=== PATIENT | male | born 2000 | race Caucasian/White ===

== ENCOUNTER 2021-09-21 19:26 | Observation (INO) | payer BC, SELFPAY ==
--- NOTE | ~2021-09-21 | CT_ITS ---
EXAMINATION: CT abdomen pelvis w con DATE: 09/21/2021 20:41 INDICATION: Upper abdominal pain constipation and bloating. TECHNIQUE: Computed tomography (CT) of the abdomen and pelvis was performed with 100 mL Omnipaque-350 intravenous contrast. Automated exposure control and iterative reconstruction technique were employe d. The dose-length product was 1069.85 mGy-cm. COMPARISON: 03/28/2012 FINDINGS: Mild dependent atelectasis in the left lower lobe. Heart size is normal. No pericardial or pleural ef fusion. Gallbladder is dilated to 5.5 cm but without evident wall thickening or pericholecystic infla mmatory change to suggest acute cholecystitis. Liver, spleen, pancreas, bilateral adrenal glands and kidneys are normal. Bowels including the appendix are normal. Bladder and prostate are normal. No moises e intraperitoneal gas or fluid. No pathologically enlarged abdominal or pelvic lymphadenopathy. Mild likely physiologic anterior wedging at T11-L1. IMPRESSION: 1. Gallbladder dilation to 5.5 cm but without wall thickening or pericholecystic inflammatory strandi ng to suggest acute cholecystitis and this could be due to fasting state. Correlate for Richter sign a nd if there is clinical concern for acute cholecystitis could consider ultrasound for further evaluat ion. 2. No other acute intra-abdominal/pelvic process. Reviewed, dictated and finalized at location A. [employer] IMPRESSION: 1. Gallbladder dilation to 5.5 cm but without wall thickening or pericholecysti c inflammatory stranding to suggest acute cholecystitis and this could be due t o fasting state. Correlate for Richter sign and if there is clinical concern for acute cholecystitis could consider ultrasound for further evaluation. 2. No other acute intra-abdominal/pelvic process.
--- NOTE | ~2021-09-21 | US_ITS ---
EXAMINATION: US abdomen limited DATE: 09/22/2021 09:56 INDICATION: Abdominal pain. TECHNIQUE: Multiple grayscale and Doppler ultrasound images of the abdomen were obtained. COMPARISON: CT abdomen and pelvis 09/21/2021 FINDINGS: The visualized portions of the abdomen body, and tail of the pancreas are normal. The liver is normal without focal lesion. There is normal flow in main portal vein. The gallbladder is distend ed and demonstrates wall thickening. No visible gallstones. The common duct is normal and measures 6 mm. IMPRESSION: 1. Distended gallbladder with gallbladder wall thickening, but no visible gallstones or sonographic M urphy sign. These findings are indeterminate for acute cholecystitis. Consider hepatobiliary scintigr aphy. Reviewed, dictated and finalized at location A. IMPRESSION: 1. Distended gallbladder with gallbladder wall thickening, but no visible galls tones or sonographic Richter sign. These findings are indeterminate for acute ch olecystitis. Consider hepatobiliary scintigraphy.
--- NOTE | ~2021-09-21 | NM_ITS ---
EXAMINATION: NM hepatobiliary w pharm DATE: 09/23/2021 09:44 INDICATION: Jaundice. COMPARISON: CT abdomen and pelvis 09/21/2021 TECHNIQUE: 5.1 mCi Tc-99m mebrofenin (Choletec) was administered intravenously. Scintigraphic images of the abdomen were obtained for one hour. Then, 2 mg morphine was administered, and imaging was con tinued for 30 minutes. FINDINGS: There is normal clearance of radiotracer from the blood pool. There is homogeneous tracer u ptake by the liver. Activity progresses to the bowel and gallbladder. IMPRESSION: 1. Patent cystic duct and common duct. Reviewed, dictated and finalized at location A.
--- NOTE | ~2021-09-21 | MR_ITS ---
EXAMINATION: MR MRCP wo/w con/w 3D wo ind DATE: 09/23/2021 13:26 INDICATION: Jaundice. Abdominal pain. TECHNIQUE: Magnetic resonance imaging (MRI) of the abdomen was performed without and with 20 mL Multi Chavez intravenous contrast. Sequences included coronal T2-weighted FS FSE, coronal T2-weighted FSE, a xial T1-weighted LAVA, coronal FS FIESTA, axial dual-echo T1-weighted SPGR, coronal lava-FLEX, sagitt al T2-weighted FSE, axial T2-weighted FSE, and axial DWI. Thick-slab T2-weighted FSE images were obta ined for magnetic resonance cholangiopancreatography (MRCP). Maximum intensity projection 3-D reconst ructions of the volumetric data were created by the technologist. Postcontrast sequences included cor onal LAVA-flex and time course of axial T1-weighted LAVA. COMPARISON: CT abdomen and pelvis 09/21/2021, ultrasound 09/22/2021, hepatobiliary scintigraphy 09/24/19 22 FINDINGS: ABDOMEN MRI: The liver and spleen are normal. The gallbladder is distended. The pancreas, adrenal gla nds, and kidneys are normal. There are no dilated loops of bowel. There are no pathologically enlarge d lymph nodes. There is no free intraperitoneal fluid. ABDOMEN MRCP: The common duct is normal and measures 3 mm. IMPRESSION: 1. Normal common bile duct. No choledocholithiasis. 2. Gallbladder distention, which may be secondary to fasting. Reviewed, dictated and finalized at location A.
[2021-09-21 19:29] VITALS: BP 151/86; PULSE 100; RESP 17; TEMP 36.6; O2SAT 100
--- NOTE | 2021-09-21 19:42 | ED.ABDPAIN ---
HPI - Abdominal Pain General Chief Complaint: Abdominal Pain Stated Complaint: pain Time Seen by Provider: 09/21/21 19:33 Source: RN notes reviewed History of Present Illness HPI narrative: Patient presents emergency department from home for abdominal pain. Patient states he had diffuse abdominal pain described as cramping and bloating for the past 3 days states is been associated with a decreased appetite. Per the patient's mother is present she is also concerned as the patient's eye color appears to be slightly more yellow than normal the patient states he was sick approximately 10 days ago with 3 days of fever and been tested for Covid at that time that was negative and that his symptoms all resolved after 3 days and that these of started approximately a week later he denies any current fevers or chills, chest pain shortness of breath, cough, nausea, vomiting, diarrhea or any other symptoms Related Data Home Medications Medication Instructions Recorded Confirmed No Home Medications 09/21/21 09/21/21 Allergies Allergy/AdvReac Type Severity Reaction Status Date / Time No Known Allergies Allergy Verified 09/21/21 19:32 Review of Systems Review of Systems: Gen.: Denies fevers or chills ENT: Denies congestion Respiratory: Denies shortness of breath or cough CV: Denies chest pain or palpitations GI: See HPI denies burning, urgency, frequency or hematuria Musculoskeletal: Denies back pain or muscle pain Neuro: Denies numbness, tingling, weakness or focal weakness Skin: Denies rash Except as documented, all other systems reviewed and negative PMF Past Medical History Medical History (Updated 09/21/21 @ 21:50 by Abhinav Khan DO) Patient denies significant medical history Social History Social History (Updated 09/21/21 @ 19:43 by Abhinav Khan DO) Smoking status: Never smoker Exam Narrative: APPEARANCE: No acute distress, nontoxic, resting in bed EYES: EOMI, scleral icterus HEENT: Normocephalic, atraumatic, OMM RESPIRATORY: No respiratory distress Clear to auscultation bilaterally with no rhonchi wheezing or rales. CARDIOVASCULAR: Regular rate and rhythm without murmurs rubs or gallops. ABDOMINAL: Soft, nondistended and mildly diffusely tender to palpation no rebound or guarding MUSCULOSKELETAl: Moves all extremities. No clubbing, cyanosis or edema. NEURO: Awake and alert. Following commands, speech normal, no focal deficits SKIN:: Warm, dry. No rashes lesions or abrasions PSYCHIATRIC: Normal affect/mood, Course Course Emergency Course: Discussed with Dr. Flores presentation work-up. Suspect a viral hepatitis agrees with consult Discussed with Ryanne for Dr. Graham agrees with admission Discussed with patient and family results of workup and diagnosis. Discussed need for admission. Patient and family understand and agree to current treatment plan Vital Signs Vital signs: Vital Signs Temperature 97.8 F 09/21/21 19:29 Pulse Rate 100 09/21/21 19:29 Respiratory Rate 17 09/21/21 19:29 Blood Pressure 151/86 H 09/21/21 19:29 Pulse Oximetry 100 09/21/21 19:29 Temperature 97.8 F 09/21/21 19:29 Pulse Rate 100 09/21/21 19:29 Respiratory Rate 17 09/21/21 19:29 Blood Pressure 151/86 H 09/21/21 19:29 Pulse Oximetry 100 09/21/21 19:29 MDM - Abdominal Pain Lab Data Result diagrams: 09/21/21 19:51 09/21/21 19:51 Labs: Lab Results 09/21/21 09/21/21 09/21/21 Range/Units 19:51 19:51 19:51 WBC 11.4 H (4.5-10.0) K/mm3 RBC 5.13 (4.6-6.20) M/mm3 Hgb 16.2 (14.0-18.0) g/dL Hct 46.7 (42.0-52.0) % MCV 91.0 (80-100) fl MCH 31.6 (26-34) pg MCHC 34.7 (32-36) g/dl RDW 12.3 (11.5-14.5) % Plt Count 268 (150-375) k/mm3 MPV 8.7 (7.4-10.4) fl Immature Gran % (Auto) 0.8 H (0-0.5) % Neut % (Auto) 73.4 H (45.5-73.1) % Lymph % (Auto) 15.1 L (18.3-44.2) % [place] % (Auto) 6.7 (2
[2021-09-21] MEDS: SODIUM CHLORIDE 0.9% IV 1,000 ML 999 ML IV CONT (19:55)
[2021-09-21 20:12] LABS: INR 1.1; Partial Thromboplastin Time 27.3 SECONDS (22.3-36.8); Prothrombin Time 14.2 Seconds (11.1-14.7)
[2021-09-21 20:13] LABS: Alanine Aminotransferase 587 U/L (4-50); Albumin Level 4.5 g/dL (3.5-5.1); Alkaline Phosphatase 358 U/L (38-126); Anion Gap 11 mmol/L (8-16); Aspartate Amino Transferase 134 U/L (17-59); Bilirubin,Total 4.9 mg/dL (0.2-1.3); Blood Urea Nitrogen 10 mg/dL (9-20); Carbon Dioxide 24 mmol/L (22-30); Chloride 103 mmol/L (98-107); Estimated Glomerular Filt Rate > 60; Glucose 116 mg/dL (65-110); Lipase 452 U/L (23-300); Potassium 3.6 mmol/L (3.4-5.0); Sodium 138 mmol/L (137-145)
[2021-09-21 20:30] LABS: Basophils Absolute Auto 0.1 K/mm3 (0.0-0.1); Basophils Percent Auto 0.5 % (0.2-1.2); Eosinophils Absolute Auto 0.4 K/mm3 (0-0.3); Eosinophils Percent Auto 3.5 % (0-4.4); Hematocrit 46.7 % (42.0-52.0); Hemoglobin 16.2 g/dL (14.0-18.0); Immature Granulocyte Absolute 0.09 K/mm3 (0.00-0.031); Immature Granulocyte Percent A 0.8 % (0-0.5); Lymphocytes Absolute Auto 1.72 K/mm3 (0.9-3.2); Lymphocytes Percent Auto 15.1 % (18.3-44.2); Mean Corpuscular HGB Conc 34.7 g/dl (32-36); Mean Corpuscular Hemoglobin 31.6 pg (26-34); Mean Platelet Volume 8.7 fl (7.4-10.4); Monocytes Absolute Auto 0.8 K/mm3 (0.1-0.6); Monocytes Percent Auto 6.7 % (2.6-8.5); Neutrophils Absolute Auto 8.3 K/mm3 (1.3-6.7); Neutrophils Percent Auto 73.4 % (45.5-73.1); Platelet Count Result 268 k/mm3 (150-375); Red Blood Count 5.13 M/mm3 (4.6-6.20); Red Cell Distribution Width 12.3 % (11.5-14.5); White Blood Count 11.4 K/mm3 (4.5-10.0)
[2021-09-21 21:30] LABS: Add Urine Microscopic? YES; Appearance Urine Clear (Clear); Bilirubin Urine 2+ (Negative); Blood Urine Negative (Negative); Color Urine Amber (Yellow); Glucose Urine UA Negative (Negative); Ketones Urine Negative (Negative); Leukocyte Esterase Ur Negative LEU/UL (Negative); Nitrate Urine Negative (Negative); Protein Urine Negative (Negative); RBC Urine 0-2 /hpf (0-2); Specific Grav Ur 1.018 (1.001-1.035)
[2021-09-21 23:10] VITALS: BP 147/84; PULSE 96; RESP 17; TEMP 37.2; O2SAT 100
[2021-09-21] MEDS: SODIUM CHLORIDE 0.9% IV 1,000 ML 125 ML IV CONT (23:10)
[2021-09-21 23:11] VITALS: BMI 31.5
[2021-09-22] VITALS (7 sets, daily range): BP systolic 99–152; BP diastolic 54–73; PULSE 81–85; RESP 16–17; TEMP 36.1–37.7; O2SAT 97–100
[2021-09-22] MEDS: ZOLPIDEM TARTRATE (*CRX) 5 MG TABLET PO (01:07)
--- NOTE | 2021-09-22 05:06 | PM.IMHP ---
H&P: HPI History of Present Illness Date/Time: 09/22/21 05:06 21-year-old male with no significant past medical history presents to the emergency room with chief complaint of fever approximately 3 days duration note occurred 10 days ago. Patient states he felt fine for 2-3 days and then suddenly developed mid back pain sore in quality lasting for approximately 4 days he took ibuprofen for this without relief over the next few days he developed bloating constipation pain while lying on his sides and a gripping pain that wraps around the upper part of his abdomen from side to side. Pain is reported 3 to 12/20 there is no relationship with food or activity he does also report symptoms of decreased appetite over the last week headache intermittently that improved with ibuprofen. abdominal bloating and constipation last BM was normal color and consistency 3 days ago. His parents noted that he looked yellow yesterday and they brought him to the hospital. CT imaging reveals a dilated gallbladder without wall thickening or pericholecystic inflammatory stranding. Laboratories demonstrate mild leukocytosis, AST 114, ALT 587, alk phos 358, and total bilirubin 4.9, are all elevated. Patient admitted for further workup and surgical consultation. Chief Complaint: abd pain bloating Review of Systems Review of Systems: All systems reviewed & are unremarkable except as noted in HPI and below PMFSH Past Medical History Medical History (Updated 09/22/21 @ 15:03 by Gabby Graham MD) Amputation, finger, traumatic Patient denies significant medical history Upper abdominal pain Surgical History Surgical History (Updated 09/22/21 @ 15:03 by Gabby Graham MD) Hx of tonsillectomy Family History Family History Other Unknown family medical history Social History Social History Smoking status: Never smoker Alcohol intake: current Drinks per week: 10 Substance use: unknown Spiritual care concerns: No Meds Home Medications and Allergies Home Medications Medication Instructions Recorded Confirmed Type No Home Medications 09/21/21 09/21/21 History Allergies Allergy/AdvReac Type Severity Reaction Status Date / Time No Known Allergies Allergy Verified 09/22/21 01:23 Vital Signs Vital Signs - 24 hr 09/21/21 19:29 09/21/21 23:10 09/22/21 03:55 Temperature 97.8 F 98.9 F 98.7 F Pulse Rate 100 96 83 Respiratory Rate 17 17 16 Blood Pressure 151/86 H 147/84 H 122/67 Pulse Oximetry 100 100 100 Exam Const: General: comfortable and no acute distress HENMT: General nose exam: Normal nares present Mouth: Yes moist mucous membranes Eyes: General: appearance normal, both eyes and all related structures Neck: Neck: supple and no JVD Lymphatic: lymphadenopathy not noted Resp: Effort & Inspection: normal respiratory effort Auscultation: clear to auscultation bilaterally, no crackles, no rales, no rhonchi and no wheezes Cardio: Rate: regular rate Rhythm: regular rhythm Heart sounds: no gallops, no murmurs and no rubs GI: Inspection: non-distended GI Palp: Yes Soft to palpation and Yes Tenderness to palpation present (GI) (deep palpation) Percussion: Yes normal to percussion Skin: General skin exam: normal color, no rashes or lesions noted and no erythema Wounds: no wounds Neuro: Cognition (Neuro): normal cognition Speech: normal speech Motor exam (neuro): 5/5 motor strength present throughout, Normal motor muscle tone present throughout, Abnormal motor strength present and Motor abnormalites present Sensory Exam: normal sensation Extrem: General: normal to inspection Psych: Mental Status: mental status grossly normal Affect: normal affect, No Sad affect present, No Anxious affect present and No Hostile affect present Attitude: not belligerent Thought content: No Hallucination(s) present and
[2021-09-22 05:15] LABS: Hepatitis B Surface Antigen Negative (Negative)
[2021-09-22 05:21] LABS: HAV RESULT Negative (Negative); Hepatitis B Core IgM Result Negative (Negative)
[2021-09-22 05:33] LABS: Hepatitis C Virus Antibody Negative (Negative)
[2021-09-22 05:58] LABS: Basophils Absolute Auto 0.1 K/mm3 (0.0-0.1); Basophils Percent Auto 0.8 % (0.2-1.2); Eosinophils Absolute Auto 0.3 K/mm3 (0-0.3); Eosinophils Percent Auto 3.6 % (0-4.4); Hematocrit 43.4 % (42.0-52.0); Hemoglobin 14.8 g/dL (14.0-18.0); Immature Granulocyte Absolute 0.08 K/mm3 (0.00-0.031); Immature Granulocyte Percent A 0.9 % (0-0.5); Lymphocytes Absolute Auto 1.69 K/mm3 (0.9-3.2); Lymphocytes Percent Auto 19.4 % (18.3-44.2); Mean Corpuscular HGB Conc 34.1 g/dl (32-36); Mean Corpuscular Hemoglobin 31.5 pg (26-34); Mean Corpuscular Volume 92.3 fl (80-100); Mean Platelet Volume 8.6 fl (7.4-10.4); Monocytes Absolute Auto 0.6 K/mm3 (0.1-0.6); Monocytes Percent Auto 7.1 % (2.6-8.5); Neutrophils Percent Auto 68.2 % (45.5-73.1); Platelet Count Result 225 k/mm3 (150-375); Red Cell Distribution Width 12.5 % (11.5-14.5); White Blood Count 8.7 K/mm3 (4.5-10.0)
[2021-09-22 06:09] LABS: Alanine Aminotransferase 478 U/L (4-50); Albumin Level 3.9 g/dL (3.5-5.1); Alkaline Phosphatase 322 U/L (38-126); Anion Gap 8 mmol/L (8-16); Aspartate Amino Transferase 114 U/L (17-59); Bilirubin,Total 3.6 mg/dL (0.2-1.3); Blood Urea Nitrogen 8 mg/dL (9-20); Calcium 8.6 mg/dL (8.4-10.2); Carbon Dioxide 25 mmol/L (22-30); Chloride 105 mmol/L (98-107); Estimated CRCL calculation 152 ml/min; Estimated Glomerular Filt Rate > 60; Glucose 94 mg/dL (65-110); Lipase 302 U/L (23-300); Sodium 138 mmol/L (137-145)
[2021-09-22] MEDS: SODIUM CHLORIDE 0.9% IV 1,000 ML 125 ML IV CONT (08:55)
--- NOTE | 2021-09-22 10:41 | WPDGICN ---
Assessment and Plan Assessment and plan (1) Elevated liver enzymes: Code(s): R74.8 - Abnormal levels of other serum enzymes Status: Acute Assessment and Plan: most likely GB/biliary source hepatitis panel negative will get MRCP to assess bile duct and rule out stricture/filling defect, etc surgery will evaluate patient (2) Jaundice, unspecified, not of : Code(s): R17 - Unspecified jaundice Status: Acute Assessment and Plan: continue to monitor denies previous episode (3) Upper abdominal pain: Code(s): R10.10 - Upper abdominal pain, unspecified Status: Acute (4) Cholecystitis: Code(s): K81.9 - Cholecystitis, unspecified Status: Acute Assessment and Plan: most likely diagnosis, had fever few days ago GI Consult Note Consult date/time: 09/22/21 10:41 Reason for consult: jaundice, abdominal pain HPI: Silverio Austin is a 21 year old male with no significant medial history who came here with diffuse upper abdominal pain described as cramping and bloating for the past 3 days, also decrease appetite and also noted dark urine. He says that about 10 days ago had fever that lasted 4 days, max 102 F- COVID test negative, used ibuprofen as needed. Last 3-4 days also yellowish sclerae, he says that never had hepatitis or GB problem. Pain for last 3-4 days unchanged and finally came to ER. No illicit drugs, he drinks alcohol only on weekends 10-15 drinks total. Abdominal ultrasound reviewed, showed distended gallbladder with gallbladder wall thickening- similar findings by CT scan. bili 4.9, transaminases 400-500, lipase 300, hepatitis panel negative. [facility] Past Medical History Medical History (Updated 09/22/21 @ 10:48 by Maximino Garcia MD) Cholecystitis Patient denies significant medical history Upper abdominal pain Family History Family History (Updated 09/21/21 @ 23:05 by Liudmila López RN) Other Unknown family medical history Social History Social History (Updated 09/21/21 @ 19:43 by Abhinav Khan DO) Smoking status: Never smoker Alcohol intake: current Drinks per week: 10 Substance use: unknown Spiritual care concerns: No Meds Home Medications and Allergies Home Medications Medication Instructions Recorded Confirmed Type No Home Medications 09/21/21 09/21/21 History Allergies Allergy/AdvReac Type Severity Reaction Status Date / Time No Known Allergies Allergy Verified 09/22/21 01:23 Vital Signs Vital Signs - 24 hr 09/21/21 19:29 09/21/21 23:10 09/22/21 03:55 Temperature 97.8 F 98.9 F 98.7 F Pulse Rate 100 96 83 Respiratory Rate 17 17 16 Blood Pressure 151/86 H 147/84 H 122/67 Pulse Oximetry 100 100 100 Exam Const: General: comfortable and no acute distress HENMT: General nose exam: Normal nares present Eyes: General: appearance normal, both eyes and all related structures Other: icteric sclerae Neck: Neck: no JVD Resp: Auscultation: clear to auscultation bilaterally Cardio: Rate: regular rate Rhythm: regular rhythm GI: Inspection: non-distended GI Palp: Yes Soft to palpation and Yes Tenderness to palpation present (GI) (mild ttp in epigastric/ruq, no rebound) Auscultation: normal bowel sounds Skin: General skin exam: normal color Neuro: Speech: normal speech Motor exam (neuro): Normal motor muscle tone present throughout Extrem: General: normal to inspection Psych: Mental Status: mental status grossly normal Results Labs CBC & Chem 7: 09/22/21 05:24 09/22/21 05:24 Labs: Short CBC 09/21/21 09/22/21 Range/Units 19:51 05:24 WBC 11.4 H 8.7 (4.5-10.0) K/mm3 Hgb 16.2 14.8 (14.0-18.0) g/dL Hct 46.7 43.4 (42.0-52.0) % Plt Count 268 225 (150-375) k/mm3 [facility] 09/21/21 09/22/21 09/22/21 19:51 05:24 05:24 Sodium 138 138 Cancelled Potassium 3.6 4.0 Cancelled Chloride 103 105 Canc
--- NOTE | 2021-09-22 11:51 | PM.CNGS ---
Assessment and Plan Assessment and plan (1) Upper abdominal pain: Code(s): R10.10 - Upper abdominal pain, unspecified Status: Acute Assessment and Plan: upper abdominal pain is associated with lower thoracic back pain. It is not a severe pain and not associated with eating. There is no associated nausea or vomiting. It is essentially gone in the morning but gets worse through the day. Somewhat unusual presentation but could be associated with cholecystitis. (2) Jaundice, unspecified, not of : Code(s): R17 - Unspecified jaundice Status: Acute Assessment and Plan: Hepatitis panel is negative. No biliary ductal dilatation on imaging to suggest obstructive jaundice. Occasionally can be caused by cholecystitis with intrahepatic cholestasis. (3) Abnormal findings on diagnostic imaging of gallbladder: Code(s): R93.2 - Abnormal findings on diagnostic imaging of liver and biliary tract Status: Acute Assessment and Plan: gallbladder is markedly dilated with thickened wall on imaging. No stones are noted on either CT or ultrasound. He is not tender over the gallbladder nor is it palpable. Could be unusual presentation of acalculous cholecystitis. Discussed with Dr. Roman. Will get a hepatobiliary scan tomorrow morning. Will go ahead and start the patient on a low-fat diet today. Continue IV fluids and p.r.n. analgesics. Will recheck labs again tomorrow as well. If HIDA scan does show cystic duct obstruction, would likely recommend laparoscopic cholecystectomy. I discussed the procedure of laparoscopic cholecystectomy with the patient and his father who was present in the room when I evaluated him. The procedure the risks the benefits were discussed. The usual recovery was discussed. They are comfortable with going ahead tomorrow if testing should indicate. After discussing with the patient and his father, I called the patient's mother and discussed my evaluation findings and recommendations with her as well. All questions were answered. She is also comfortable with the above plan. History of Present Illness Consult details Consult date: 09/22/21 Reason for consult: abdominal pain Requesting physician: Abhinav Khan DO Narrative: Patient is a 21-year-old male who is generally quite healthy. About 10 or 11 days ago, he experienced 3 days of fever and did not feel well. He did get a COVID test which was negative. After 3 days, his fever and feelings of malaise went away. He was fine until 3 or 4 days ago when he started noticing some lower thoracic back pain and upper abdominal pain. This pain was sporadic and not made worse by eating. It was not severe pain. In fact, the patient would awaken and feel fine but then as the day went on he developed more discomfort in his back and upper abdomen. He also noticed that his appetite was poor. He normally eats a lot of food but the day before they came to the emergency room, he had very little appetite. His mother noticed that he appeared jaundice and brought him to the emergency room. In the emergency room, he was afebrile with normal vital signs. His white blood cell count was slightly elevated at 11,400. His bilirubin was elevated at 4.9 and liver function tests were elevated as well. His lipase was elevated at 452. His abdominal exam showed mild diffuse tenderness. CT scan of the abdomen and pelvis showed a very dilated gallbladder but no evidence of stones. There was no sign of pancreatitis. There were no abnormalities of the liver to suggest cirrhosis. I reviewed his CT scan independently and I agree he has a markedly distended gallbladder. Hepatitis profile was obtained and was negative. Ultrasound of the gallbladder was done this morning and shows again a very distended gallbladder with a thickened wall but no gallstones. Common bile duct was not dilated on either the CT scan or the ultrasound. This morning, he is not
[2021-09-22] MEDS: ENOXAPARIN 40 MG/0.4 ML SYRINGE SUB-Q (12:48)
[2021-09-22] MEDS: ACETAMINOPHEN 500 MG TABLET PO (20:00)
[2021-09-22] MEDS: FAMOTIDINE 20 MG/2 ML VIAL IV PUSH (20:01)
[2021-09-22] MEDS: SODIUM CHLORIDE 0.9% IV 1,000 ML 80 ML IV CONT (20:03)
[2021-09-22] MEDS: traZODone HCL 50 MG TABLET PO (21:26)
[2021-09-23 04:11] VITALS: BP 132/65; PULSE 89; RESP 17; TEMP 37.1; O2SAT 98
[2021-09-23 06:05] LABS: Hematocrit 44.6 % (42.0-52.0); Hemoglobin 15.1 g/dL (14.0-18.0); Mean Corpuscular HGB Conc 33.9 g/dl (32-36); Mean Corpuscular Hemoglobin 31.3 pg (26-34); Mean Corpuscular Volume 92.5 fl (80-100); Mean Platelet Volume 8.6 fl (7.4-10.4); Platelet Count Result 222 k/mm3 (150-375); Red Blood Count 4.82 M/mm3 (4.6-6.20); Red Cell Distribution Width 12.6 % (11.5-14.5); White Blood Count 8.2 K/mm3 (4.5-10.0)
[2021-09-23 06:15] LABS: Alanine Aminotransferase 503 U/L (4-50); Albumin Level 4.1 g/dL (3.5-5.1); Alkaline Phosphatase 307 U/L (38-126); Anion Gap 7 mmol/L (8-16); Aspartate Amino Transferase 179 U/L (17-59); Bilirubin,Total 2.2 mg/dL (0.2-1.3); Blood Urea Nitrogen 8 mg/dL (9-20); Calcium 8.8 mg/dL (8.4-10.2); Carbon Dioxide 27 mmol/L (22-30); Chloride 107 mmol/L (98-107); Estimated CRCL calculation 136 ml/min; Estimated Glomerular Filt Rate > 60; Glucose 100 mg/dL (65-110); Lipase 511 U/L (23-300); Potassium 4.1 mmol/L (3.4-5.0); Sodium 141 mmol/L (137-145)
--- NOTE | 2021-09-23 07:47 | PM.IMPN ---
Progress Note: A&P Assessment and Plan (1) Elevated liver enzymes: Code(s): R74.8 - Abnormal levels of other serum enzymes Status: Acute (2) Jaundice, unspecified, not of : Code(s): R17 - Unspecified jaundice Status: Acute (3) Abnormal findings on diagnostic imaging of gallbladder: Code(s): R93.2 - Abnormal findings on diagnostic imaging of liver and biliary tract Status: Acute (4) Upper abdominal pain: Code(s): R10.10 - Upper abdominal pain, unspecified Status: Acute (5) Elevated lipase: Code(s): R74.8 - Abnormal levels of other serum enzymes Status: Acute Additional Plan 09/22/2021 admit to med surg Clinically patient appears to have cholecystitis although imaging is inconclusive at this time HIDA scan in a.m. Surgery following GI consulted for jaundice pain control IVFs on general diet at present NPO if develops nausea or pain VTEP ambulate pt Repeat CBC, CMP in a.m. to trend LFTs and Lipase anticipate LOS > 2 midnights 09/23/2021 HIDA and MRCP reviewed LFTs and Lipase remain elevated but stable pending follow up by Dr Flores diet per Dr Flores after he sees pt CMV and EBV ordered cont supportive care Subjective Date/time seen: 09/23/21 13:47 pt doing ok but does report he had pain last night, lipase slightly higher today. HIDA scan reviewed w GI, EBV and CMV ordered. Exam Const: General: comfortable and no acute distress HENMT: General nose exam: Normal nares present Mouth: Yes moist mucous membranes Eyes: General: appearance normal, both eyes and all related structures Neck: Neck: supple and no JVD Lymphatic: lymphadenopathy not noted Resp: Effort & Inspection: normal respiratory effort Auscultation: clear to auscultation bilaterally, no crackles, no rales, no rhonchi and no wheezes Cardio: Rate: regular rate Rhythm: regular rhythm Heart sounds: no gallops, no murmurs and no rubs GI: Inspection: non-distended Skin: General skin exam: normal color, no rashes or lesions noted and no erythema Wounds: no wounds Neuro: Cognition (Neuro): normal cognition Speech: normal speech Motor exam (neuro): Normal motor muscle tone present throughout Extrem: General: normal to inspection Psych: Mental Status: mental status grossly normal Affect: normal affect, No Sad affect present, No Anxious affect present and No Hostile affect present Attitude: not belligerent Objective Data Vital Signs Vital Signs: Vital Signs - 24 hr 09/22/21 14:00 09/22/21 19:24 09/22/21 20:00 Temperature 97 F L 99.9 F H 99.9 F H Pulse Rate 81 85 Respiratory Rate 16 17 Blood Pressure 152/73 H 99/54 L Pulse Oximetry 100 100 09/22/21 21:00 09/22/21 21:26 09/22/21 23:19 Temperature 98.9 F 98.9 F Pulse Rate Respiratory Rate Blood Pressure Pulse Oximetry 97 09/23/21 04:11 Temperature 98.7 F Pulse Rate 89 Respiratory Rate 17 Blood Pressure 132/65 Pulse Oximetry 98 Intake/Output Intake/Output: Intake & Output 09/20/21 09/21/21 09/22/21 09/23/21 22:59 22:59 23:59 23:59 Intake Total Balance Meds/Results Medications: Active Medications Generic Name Dose Route Start Last Admin Trade Name Freq PRN Reason Stop Dose Admin Acetaminophen 500 mg 09/22/21 11:32 09/22/21 20:00 Acetaminophen 500 Mg Tablet PO 500 mg Q6H PRN Administration Mild Pain (1-3) or Fever Famotidine 20 mg 09/22/21 21:00 09/22/21 20:01 Famotidine 20 Mg/2 Ml Vial IV PUSH 20 mg Q12HR EB Administration Sodium Chloride 1,000 mls @ 80 mls/hr 09/21/21 21:45 09/22/21 20:03 Normal Saline Iv IV CONT 80 mls/hr .[id number] EB Administration Ibuprofen 800 mg in 200 mls @ 400 mls/hr 09/22/21 11:32 Caldolor 800 Mg/200 Ml IVPB Q6H PRN Pain Rated 4-6 Morphine Sulfate 2 mg 09/22/21 11:32 Morphine Sulfate (*Crx) 2 Mg/Ml Inj IV PUSH Q2H PRN Pain Rated 7-10 Ondansetron HCl 4 m
[2021-09-23] MEDS: MORPHINE SULFATE (*CRX) 2 MG/ML INJ IV PUSH (09:05)
[2021-09-23] MEDS: FAMOTIDINE 20 MG/2 ML VIAL IV PUSH ×2 (10:03→20:55)
[2021-09-23] MEDS: SODIUM CHLORIDE 0.9% IV 1,000 ML 80 ML IV CONT (10:04)
[2021-09-23 14:29] VITALS: BP 122/63; PULSE 74; RESP 18; TEMP 36.7; O2SAT 100
--- NOTE | 2021-09-23 15:29 | PM.PNGS ---
Progress Note: A&P Assessment and Plan (1) Abnormal findings on diagnostic imaging of gallbladder: Code(s): R93.2 - Abnormal findings on diagnostic imaging of liver and biliary tract Status: Acute Assessment and Plan: HIDA scan normal. MRCP shows gallbladder distention, but no cholelithiasis, choledocholithiasis, or biliary duct dilatation. Patient is clinically improving. No longer having any abdominal pain and was nontender on exam today. Bilirubin is also trending down. No surgical indication for his abdominal pain and jaundice. Will resume a regular diet. We will sign off at this time. Please call us if there are any other surgical needs in the future. (2) Jaundice, unspecified, not of : Code(s): R17 - Unspecified jaundice Status: Acute Assessment and Plan: Unclear etiology. HIDA scan normal. MRCP showed gallbladder distention, but otherwise normal. Hepatitis panel negative. Total bilirubin trending down. Will defer further management to GI and hospitalist. (3) Upper abdominal pain: Code(s): R10.10 - Upper abdominal pain, unspecified Status: Acute Assessment and Plan: Abdominal pain has not resolved. Unclear etiology. Additional Plan I have discussed the plan of care with Dr. Flores Subjective Subjective Date/Time Seen: 09/23/21 15:29 Patient reports: no new complaints, feels better, pain is less and afebrile Interval history: Patient seen and examined after returning to his room for his MRCP. He reports his abdominal pain has improved significantly today. He denies any pain on my exam. He reports his bloating is also improving. Denies any nausea or vomiting. He reports his urine is becoming less dark. He and his mother also feel the jaundice is improving. No new complaints. Review of Systems Review of Systems: All systems reviewed & are unremarkable except as noted in HPI and below Exam Const: General: comfortable, no acute distress and awake GI: Inspection: non-distended GI Palp: Yes Soft to palpation, No Tenderness to palpation present (GI), No Guarding due to palpation present (GI) and No Rebound tenderness present Auscultation: normoactive bowel sounds Skin: General skin exam: no jaundice ( no significant jaundice noted today) Extrem: General: normal to inspection Psych: Judgement: Good judgement present (Psych) Objective Data Vital Signs Vital Signs: Vital Signs - 24 hr 09/22/21 19:24 09/22/21 20:00 09/22/21 21:00 Temperature 99.9 F H 99.9 F H 98.9 F Pulse Rate 85 Respiratory Rate 17 Blood Pressure 99/54 L Pulse Oximetry 100 09/22/21 21:26 09/22/21 23:19 09/23/21 04:11 Temperature 98.9 F 98.7 F Pulse Rate 89 Respiratory Rate 17 Blood Pressure 132/65 Pulse Oximetry 97 98 09/23/21 14:29 Temperature 98.1 F Pulse Rate 74 Respiratory Rate 18 Blood Pressure 122/63 Pulse Oximetry 100 Intake/Output Intake/Output: Intake & Output 09/20/21 09/21/21 09/22/21 09/23/21 22:59 22:59 23:59 23:59 Intake Total 1000 Balance 1000 Meds/Results Medications: Active Medications Generic Name Dose Route Start Last Admin Trade Name Freq PRN Reason Stop Dose Admin Acetaminophen 500 mg 09/22/21 11:32 09/22/21 20:00 Acetaminophen 500 Mg Tablet PO 500 mg Q6H PRN Administration Mild Pain (1-3) or Fever Famotidine 20 mg 09/22/21 21:00 09/23/21 10:03 Famotidine 20 Mg/2 Ml Vial IV PUSH 20 mg Q12HR EB Administration Sodium Chloride 1,000 mls @ 80 mls/hr 09/21/21 21:45 09/23/21 10:04 Normal Saline Iv IV CONT 80 mls/hr .[id number] EB Administration Ibuprofen 800 mg in 200 mls @ 400 mls/hr 09/22/21 11:32 Caldolor 800 Mg/200 Ml IVPB Q6H PRN Pain Rated 4-6 Morphine Sulfate 2 mg 09/22/21 11:32 09/23/21 09:05 Morphine Sulfate (*Crx) 2 Mg/Ml Inj IV PUSH 2 mg Q2H PRN Administration Pain Rated 7-10 Ondansetron HCl 4 mg 09/22/21 11:32 Ondanse
[2021-09-23 16:17] VITALS: O2SAT 98
--- NOTE | 2021-09-23 17:27 | WPDGIPROGNO ---
Progress Note: A&P Assessment and Plan (1) Jaundice, unspecified, not of : Code(s): R17 - Unspecified jaundice Status: Acute Assessment and Plan: he had fever few days ago then noted jaundice, wonder if could have been infectious/viral related hepatitis panel negative work up negative for biliary cause and no obvious cholecystitis will get CMV, monotest and hiv he is already feeling better and bili trending down, if numbers better probably can go home and follow-up in office with repeat labs he drinks on weekends and last time drank a lot during but presentation does not fit alcoholic liver disease (alt>ast) but still I told him that he should try to slow down. (2) Upper abdominal pain: Code(s): R10.10 - Upper abdominal pain, unspecified Status: Acute Assessment and Plan: resolved (3) Elevated liver enzymes: Code(s): R74.8 - Abnormal levels of other serum enzymes Status: Acute Subjective Date/time seen: 09/23/21 17:27 Interval history: he is feeling much better today, tolerating diet now. HIDA scan and MRCP reviewed, no evidence of stones or GB abnormality. He says that urine is getting clear and no abdominal pain. Review of Systems Review of Systems: All systems reviewed & are unremarkable except as noted in HPI and below Exam Const: General: comfortable and no acute distress HENMT: General nose exam: Normal nares present Eyes: General: appearance normal, both eyes and all related structures Neck: Neck: no JVD Resp: Auscultation: clear to auscultation bilaterally Cardio: Rate: regular rate Rhythm: regular rhythm GI: Inspection: non-distended GI Palp: Yes Soft to palpation and No Guarding due to palpation present (GI) Auscultation: normal bowel sounds Skin: General skin exam: normal color Neuro: General: gait normal Speech: normal speech Extrem: General: normal to inspection Psych: Mental Status: mental status grossly normal Objective Data Vital Signs Vital Signs: Vital Signs - 24 hr 09/22/21 19:24 09/22/21 20:00 09/22/21 21:00 Temperature 99.9 F H 99.9 F H 98.9 F Pulse Rate 85 Respiratory Rate 17 Blood Pressure 99/54 L Pulse Oximetry 100 09/22/21 21:26 09/22/21 23:19 09/23/21 04:11 Temperature 98.9 F 98.7 F Pulse Rate 89 Respiratory Rate 17 Blood Pressure 132/65 Pulse Oximetry 97 98 09/23/21 14:29 09/23/21 16:17 Temperature 98.1 F Pulse Rate 74 Respiratory Rate 18 Blood Pressure 122/63 Pulse Oximetry 100 98 Intake/Output Intake/Output: Intake & Output 09/20/21 09/21/21 09/22/21 09/23/21 22:59 22:59 23:59 23:59 Intake Total 1000 Balance 1000 Meds/Results Medications: Active Medications Generic Name Dose Route Start Last Admin Trade Name Freq PRN Reason Stop Dose Admin Acetaminophen 500 mg 09/22/21 11:32 09/22/21 20:00 Acetaminophen 500 Mg Tablet PO 500 mg Q6H PRN Administration Mild Pain (1-3) or Fever Famotidine 20 mg 09/22/21 21:00 09/23/21 10:03 Famotidine 20 Mg/2 Ml Vial IV PUSH 20 mg Q12HR EB Administration Sodium Chloride 1,000 mls @ 80 mls/hr 09/21/21 21:45 09/23/21 10:04 Normal Saline Iv IV CONT 80 mls/hr .[id number] EB Administration Ibuprofen 800 mg in 200 mls @ 400 mls/hr 09/22/21 11:32 Caldolor 800 Mg/200 Ml IVPB Q6H PRN Pain Rated 4-6 Morphine Sulfate 2 mg 09/22/21 11:32 09/23/21 09:05 Morphine Sulfate (*Crx) 2 Mg/Ml Inj IV PUSH 2 mg Q2H PRN Administration Pain Rated 7-10 Ondansetron HCl 4 mg 09/22/21 11:32 Ondansetron Inj 4 Mg/2 Ml Vial IV PUSH Q4H PRN Nausea And Vomiting Polyethylene Glycol 17 gm 09/22/21 15:18 Polyethylene Glycol 3350 17 Gm Powd.Pack PO QAM PRN Constipation Trazodone HCl 50 mg 09/22/21 11:49 09/22/21 21:26 Trazodone Hcl 50 Mg Tablet PO 50 mg HS PRN Administration Insomnia Radiology Results: ITS Impress
[2021-09-23 18:01] LABS: Monoscreen Negative (Negative); Negative Monotest Control Negative (Negative); Positive Monotest Control Positive (Positive)
[2021-09-23 20:00] VITALS: O2SAT 98
[2021-09-23] MEDS: traZODone HCL 50 MG TABLET PO (20:55)
[2021-09-23 22:32] VITALS: BP 110/60; PULSE 88; RESP 18; TEMP 36.9; O2SAT 98
[2021-09-24] MEDS: SODIUM CHLORIDE 0.9% IV 1,000 ML 80 ML IV CONT (02:49)
[2021-09-24 05:55] LABS: Alanine Aminotransferase 565 U/L (4-50); Albumin Level 3.9 g/dL (3.5-5.1); Alkaline Phosphatase 276 U/L (38-126); Anion Gap 7 mmol/L (8-16); Aspartate Amino Transferase 244 U/L (17-59); Bilirubin,Total 1.5 mg/dL (0.2-1.3); Blood Urea Nitrogen 7 mg/dL (9-20); Calcium 8.5 mg/dL (8.4-10.2); Carbon Dioxide 26 mmol/L (22-30); Chloride 104 mmol/L (98-107); Estimated CRCL calculation 136 ml/min; Estimated Glomerular Filt Rate > 60; Glucose 100 mg/dL (65-110); Potassium 4.1 mmol/L (3.4-5.0); Sodium 137 mmol/L (137-145)
[2021-09-24 06:41] LABS: HIV 1/2 Ab P24 Ag Result Negative (Negative)
[2021-09-24 06:59] VITALS: BP 133/58; PULSE 74; RESP 18; TEMP 36.7; O2SAT 95
[2021-09-24] MEDS: FAMOTIDINE 20 MG/2 ML VIAL IV PUSH (08:31)
--- NOTE | 2021-09-24 11:21 | WPDGIPROGNO ---
Progress Note: A&P Assessment and Plan (1) Jaundice, unspecified, not of : Code(s): R17 - Unspecified jaundice Status: Acute Assessment and Plan: he had fever few days ago then noted jaundice, wonder if could have been infectious/viral related hepatitis panel negative work up negative for biliary cause and no obvious cholecystitis hiv negative, cmv pending bili is almost back down to normal and he is asymptomatic I think that he can go home today with blood work and follow-up in office 4 weeks (2) Upper abdominal pain: Code(s): R10.10 - Upper abdominal pain, unspecified Status: Acute Assessment and Plan: resolved (3) Elevated liver enzymes: Code(s): R74.8 - Abnormal levels of other serum enzymes Status: Acute Subjective Date/time seen: 09/24/21 11:21 Interval history: he is asymptomatic now, tolerating regular diet, no pain or nausea, urine is clear Review of Systems Review of Systems: All systems reviewed & are unremarkable except as noted in HPI and below Exam Const: General: comfortable and no acute distress HENMT: General nose exam: Normal nares present Eyes: General: appearance normal, both eyes and all related structures Neck: Neck: no JVD Resp: Auscultation: clear to auscultation bilaterally Cardio: Rate: regular rate Rhythm: regular rhythm GI: Inspection: non-distended GI Palp: Yes Soft to palpation Skin: General skin exam: normal color Neuro: General: gait normal Speech: normal speech Extrem: General: normal to inspection Psych: Mental Status: mental status grossly normal Objective Data Vital Signs Vital Signs: Vital Signs - 24 hr 09/23/21 14:29 09/23/21 16:17 09/23/21 20:00 Temperature 98.1 F Pulse Rate 74 Respiratory Rate 18 Blood Pressure 122/63 Pulse Oximetry 100 98 98 09/23/21 22:32 09/24/21 06:59 Temperature 98.4 F 98.0 F Pulse Rate 88 74 Respiratory Rate 18 18 Blood Pressure 110/60 133/58 L Pulse Oximetry 98 95 Intake/Output Intake/Output: Intake & Output 09/21/21 09/22/21 09/23/21 09/24/21 22:59 23:59 23:59 23:59 Intake Total 1780 1440 Output Total 600 Balance 1780 840 Meds/Results Medications: Active Medications Generic Name Dose Route Start Last Admin Trade Name Freq PRN Reason Stop Dose Admin Acetaminophen 500 mg 09/22/21 11:32 09/22/21 20:00 Acetaminophen 500 Mg Tablet PO 500 mg Q6H PRN Administration Mild Pain (1-3) or Fever Famotidine 20 mg 09/22/21 21:00 09/24/21 08:31 Famotidine 20 Mg/2 Ml Vial IV PUSH 20 mg Q12HR EB Administration Sodium Chloride 1,000 mls @ 80 mls/hr 09/21/21 21:45 09/24/21 02:49 Normal Saline Iv IV CONT 80 mls/hr .[id number] EB Administration Ibuprofen 800 mg in 200 mls @ 400 mls/hr 09/22/21 11:32 Caldolor 800 Mg/200 Ml IVPB Q6H PRN Pain Rated 4-6 Morphine Sulfate 2 mg 09/22/21 11:32 09/23/21 09:05 Morphine Sulfate (*Crx) 2 Mg/Ml Inj IV PUSH 2 mg Q2H PRN Administration Pain Rated 7-10 Ondansetron HCl 4 mg 09/22/21 11:32 Ondansetron Inj 4 Mg/2 Ml Vial IV PUSH Q4H PRN Nausea And Vomiting Polyethylene Glycol 17 gm 09/22/21 15:18 Polyethylene Glycol 3350 17 Gm Powd.Pack PO QAM PRN Constipation Trazodone HCl 50 mg 09/22/21 11:49 09/23/21 20:55 Trazodone Hcl 50 Mg Tablet PO 50 mg HS PRN Administration Insomnia Radiology Results: ITS Impressions Abdomen/Pelvis CT 09/21/21 20:48 IMPRESSION: 1. Gallbladder dilation to 5.5 cm but without wall thickening or pericholecystic inflammatory stranding to suggest acute cholecystitis and this could be due to fasting state. Correlate for Richter sign and if there is clinical concern for acute cholecystitis could consider ultrasound for further evaluation. 2. No other acute intra-abdominal/pelvic process. Abdomen Ultrasound 09/22/21 09:58 IMPRESSION: 1. Distended gallbladder
--- NOTE | 2021-09-24 12:58 | PM.DS ---
DS: Admitting Diagnosis Discharge Date 09/24/2021 Admitting Diagnosis fever and abdominal pain DS: Summary Hospital Course Reason for hospitalization: 21-year-old male with no significant past medical history presents to the emergency room with chief complaint of fever approximately 3 days duration note occurred 10 days ago. Patient states he felt fine for 2-3 days and then suddenly developed mid back pain sore in quality lasting for approximately 4 days he took ibuprofen for this without relief over the next few days he developed bloating constipation pain while lying on his sides and a gripping pain that wraps around the upper part of his abdomen from side to side. Pain is reported 3 to 12/20 there is no relationship with food or activity he does also report symptoms of decreased appetite over the last week headache intermittently that improved with ibuprofen. abdominal bloating and constipation last BM was normal color and consistency 3 days ago. His parents noted that he looked yellow yesterday and they brought him to the hospital. CT imaging reveals a dilated gallbladder without wall thickening or pericholecystic inflammatory stranding. Laboratories demonstrate mild leukocytosis, AST 114, ALT 587, alk phos 358, and total bilirubin 4.9, are all elevated. Patient admitted for further workup and surgical consultation. Chief Complaint: abd pain bloating Hospital Course: today patient's bilirubin is 1.5 compared to 4.9 upon arrival, and patient is not a jaundice is clinically stable, patient instructed to stop drinking alcohol as he may have alcoholic hepatitis and there is also concerned the patient may have underlining liver disease, patient to follow-up with his primary care and GI as soon as possible, patient instructed if any symptoms redeveloped to go to nearest emergency department. Status at Discharge Functional status at discharge: independent ambulation Overall status at discharge: patient is back to baseline Time Spent with Patient Time attestation: Total time spent providing and/or coordinating discharge services: Patient was seen and examined at the time of the discharge Condition at discharge is stable Code status: Full code. Time spent preparing discharge summary, discharge medications, discussing discharge planning with medical case worker and patient is 35 minutes. Time spent: Greater than 30 minutes DS: Data Data Completed and Pending Labs on day of discharge: Labs from last 24 hours 09/24/21 09/24/21 09/23/21 05:17 05:17 18:06 Sodium 137 Potassium 4.1 Chloride 104 Carbon Dioxide 26 Anion Gap 7 L BUN 7 L Creatinine 0.90 Estim Creat Clear Calc 136 Estimated GFR > 60 Glucose 100 Calcium 8.5 Total Bilirubin 1.5 H AST 244 H ALT 565 H Alkaline Phosphatase 276 H Total Protein 7.0 Albumin 3.9 CMV IgG Ab CMV IgM Ab Ur CMV DNA Qual (PCR) Pending CMV DNA Qnt Source Pending Monoscreen HIV 1&2 Ab/P24 Ag 4thGn Negative 09/23/21 09/23/21 17:36 14:55 Sodium Potassium Chloride Carbon Dioxide Anion Gap BUN Creatinine Estim Creat Clear Calc Estimated GFR Glucose Calcium Total Bilirubin AST ALT Alkaline Phosphatase Total Protein Albumin CMV IgG Ab Pending CMV IgM Ab Pending Ur CMV DNA Qual (PCR) CMV DNA Qnt Source Monoscreen Negative HIV 1&2 Ab/P24 Ag 4thGn Discharge Plan Discharge Attending physician on discharge: Ajay Heller Consulting providers: Maximino Garcia Discharging Clinician: Ajay Heller Patient Disposition: Home, Self-Care Activity: as tolerated Diet: heart healthy Discharge Instructions: today patient's bilirubin is 1.5 compared to 4.9 upon arrival, and patient is not a jaundice is clinically stable, patient instructed to stop drinking alcohol as he may have alcoholic hepatitis and there is also concerned the patient may have und
[2021-09-25 14:53] LABS: Cytomegalovirus DNA Source Urine
[2021-09-26 20:49] LABS: CMV IgM Antibody <30.00 AU/mL (<30.00)
[2021-09-27 17:58] LABS: CMV IgG Antibody <0.60 U/mL (<0.60)
== END 2021-09-24 13:45 | disposition home or self-care (01) ==
LOC: ANHED 21:50 → ANH3MED 09-22 12:41
PROVIDERS: Internal Medicine Gastroenterology; Surgery; Admitting Provider Hospitalist; Emergency Provider Emergency Medicine; PCP Pediatrics Adolescent Medicine; Visit Provider Family Medicine
DX: R74.8 Abnormal levels of other serum enzymes (principal); R17 Unspecified jaundice; K81.9 Cholecystitis, unspecified; R93.2 Abnormal findings on diagnostic imaging of liver and biliary tract; R10.10 Upper abdominal pain, unspecified; Z11.4 Encounter for screening for human immunodeficiency virus [HIV]
CPT/HCPCS: 36415; 74177; 74183; 76376; 76705; 78227; 80053; 80074; 81001; 83690; 83735; 85025; 85027; 85610; 85730; 86308; 86644; 86645; 86703; 87496; 96361; 96372; 96374; 96375; 96376; 99285; A9270; A9537; A9577; G0378; G0432; J1650; J2270; J2805; J7030; Q9967

== ENCOUNTER 2021-10-24 11:53 | Outpatient (CLI) | payer BC, SELFPAY ==
[2021-10-24 12:27] LABS: Alanine Aminotransferase 57 U/L (4-50); Albumin Level 4.9 g/dL (3.5-5.1); Alkaline Phosphatase 123 U/L (38-126); Anion Gap 10 mmol/L (8-16); Aspartate Amino Transferase 36 U/L (17-59); Bilirubin,Total 1.6 mg/dL (0.2-1.3); Blood Urea Nitrogen 11 mg/dL (9-20); Calcium 9.5 mg/dL (8.4-10.2); Carbon Dioxide 28 mmol/L (22-30); Chloride 100 mmol/L (98-107); Estimated Glomerular Filt Rate > 60; Glucose 93 mg/dL (65-110); Sodium 138 mmol/L (137-145)
== END 2021-10-24 11:54 | disposition home or self-care (01) ==
LOC: ANHLAB 11:55
PROVIDERS: PCP Pediatrics Adolescent Medicine; Visit Provider Internal Medicine Gastroenterology
DX: R74.8 Abnormal levels of other serum enzymes (principal)
CPT/HCPCS: 36415; 80053

== ENCOUNTER 2021-10-31 11:05 | Outpatient (CLI) | payer BC, SELFPAY ==
[2021-10-31 12:21] LABS: Iron 93 ug/dL (49-181)
[2021-10-31 12:30] LABS: Percent Iron Saturation 29 % (20-50)
[2021-11-02 22:32] LABS: Tissue Transglutaminase IgG Ab <1.0 U/mL (<15.0)
[2021-11-03 08:16] LABS: Tissue Transglutaminase IgA Ab 19.6 U/mL (<15.0)
[2021-11-04 13:21] LABS: Mitochondrial (M2) Ab (IgG) <=20.0 U (<=20.0)
[2021-11-05 05:57] LABS: Ceruloplasmin 31 mg/dL (18-36)
== END 2021-10-31 11:06 | disposition home or self-care (01) ==
PROVIDERS: PCP Pediatrics Adolescent Medicine; Visit Provider Internal Medicine Gastroenterology
DX: R74.8 Abnormal levels of other serum enzymes (principal)
CPT/HCPCS: 36415; 82104; 82390; 82728; 83516; 83520; 83540; 83550; 86038; 86039

== ENCOUNTER 2022-02-20 07:16 | Outpatient (RCR) | payer BC, SELFPAY ==
[2022-02-13 13:43] VITALS: BMI 32.3
== END 2022-05-05 10:05 | disposition home or self-care (01) ==
LOC: ANHWOC 07:16
PROVIDERS: PCP Pediatrics Adolescent Medicine; Visit Provider Orthopaedic Surgery
DX: T14.8XXA Other injury of unspecified body region, initial encounter (principal)
CPT/HCPCS: 99212; 99214; G0463